=== PATIENT | female | born 1945 | race Caucasian/White ===

== ENCOUNTER 2016-06-09 08:14 | Inpatient (IN) | payer MEDICARE ==
[~2016-06-09] VITALS: Ht 160 cm; Wt 56.4 kg
[~2016-06-09 08:14] MED LIST: ACET-703 PO; ASPI325T33 PO; FISH100020 PO; FOLI1TAB4 PO; GEMF600 PO; METH0.35 IM; MULT-135 PO; OMEP20TA PO; PAXI20TA PO; PRED1 PO; ZETI10TA5 PO; ZOFR4TAB PO; [UNRECOGNIZED DRUG - CODE] PO
[2016-06-09 08:56] VITALS: BP 155/50; PULSE 83; RESP 20; TEMP 98; O2SAT 96
[2016-06-09] MEDS ORDERED: METOPROLOL TARTRATE 25 MG TAB PO PRN ×2 (09:00→20:15)
[2016-06-09] MEDS ORDERED: LACTATED RINGER'S 1000 ML IV PRN ×2 (09:00→20:00)
[2016-06-09] MEDS ORDERED: CHLORHEXIDINE GLUCONATE 2 % 1 PACK (2 CLOTHS) TOPICAL PRN ×2 (09:00→20:15)
[2016-06-09] MEDS ORDERED: POVIDONE IODINE 5% (ANTISEPSIS KIT) 4 APPLICATIONS EACH NARE PRN (09:00)
[2016-06-09] MEDS ORDERED: SODIUM CHLORID 0.9% 500 ML IV PRN ×2 (09:00→20:00)
[2016-06-09] MEDS ORDERED: INSULIN HUMAN REGULAR 1,000 UNITS/10 ML VIAL SQ PRN ×2 (09:00→20:15)
[2016-06-09 09:10] LABS: AUTOMATED NEUTROPHIL # 4.5 TH/MM3 (1.8-7.7); BASOPHIL # 0.1 TH/MM3 (0-0.2); BASOPHIL % 1.1 % (0.0-2.0); EOSINOPHIL # 0.3 TH/MM3 (0-0.4); EOSINOPHIL % 3.5 % (0.0-4.0); HEMO FLAGS DIFF FINAL; LYMPH % 33.3 % (9.0-44.0); LYMPHOCYTE # 2.7 TH/MM3 (1.0-4.8); MEAN CELL VOLUME 82.9 FL (80.0-100.0); MEAN CORPUSCULAR HEMOGLOBIN 26.8 PG (27.0-34.0); MEAN CORPUSCULAR HGB CONC 32.3 % (32.0-36.0); MONO % 6.8 % (0.0-8.0); NEUT % 55.3 % (16.0-70.0); PLATELET COUNT 336 TH/MM3 (150-450); RED BLOOD COUNT 4.59 MIL/MM3 (4.00-5.30); RED CELL DISTRIBUTION WIDTH 20.3 % (11.6-17.2); WHITE BLOOD COUNT 8.1 TH/MM3 (4.0-11.0)
[2016-06-09 09:55] LABS: BICARBONATE 25.7 MEQ/L (21.0-32.0); POTASSIUM 4.2 MEQ/L (3.5-5.1)
[2016-06-09] MEDS ORDERED: HEPARIN SODIUM - IV 10,000 UNITS/10 ML VIAL ONE (10:22)
[2016-06-09] MEDS ORDERED: PROTAMINE SULFATE 50 MG/5 ML VIAL ONE (10:22)
[2016-06-09] MEDS ORDERED: HEPARIN SODIUM - SQ 10,000 UNITS/ML VIAL ONE (10:27)
[2016-06-09] MEDS ORDERED: fentaNYL CITRATE 250 MCG/5 ML AMP ONE (10:38)
[2016-06-09] MEDS ORDERED: VANCOMYCIN 500 MG VIAL ONE (11:21)
[2016-06-09] MEDS ORDERED: LIDOCAINE HCL 1% 50 ML VIAL ONE (11:30)
[2016-06-09] MEDS ORDERED: PHENYLEPH/NS 1000 MCG/10 ML SYR IV ONE (12:00)
[2016-06-09] MEDS ORDERED: LACTATED RINGER'S 1000 ML INJ 1,000 ML IV ONE (12:00)
[2016-06-09] MEDS ORDERED: NITROGLYCERIN 1000 MCG/5 ML VIAL IV ONE (12:00)
[2016-06-09] MEDS ORDERED: PROPOFOL 200 MG/20 ML AMP IV ONE (12:00)
[2016-06-09] MEDS ORDERED: SUGAMMADEX SODIUM 200 MG/2 ML VIAL IV PUSH ONE ×2 (12:40)
[2016-06-09] MEDS ORDERED: *RESP: ALBUTEROL 2.5 MG/3 ML NEB (PRN) PERIprocedural Use ONLY NEB ONE (13:31)
[2016-06-09] MEDS ORDERED: *morphine SULFATE 8 MG/ML PERIprocedure ONLY ONE ×2 (13:31→13:58)
[2016-06-09] MEDS ORDERED: NALOXONE HCL 0.4 MG/ML AMP IV PRN (13:45)
[2016-06-09] MEDS ORDERED: MORPHINE SULFATE 4 MG/ML INJ IV PRN (13:45)
[2016-06-09] MEDS ORDERED: Post-op Orders (for Pharmacy) MISC XX ONE (13:45)
[2016-06-09] MEDS: PANTOPRAZOLE SOD 40 MG DELAYED RELEASE TAB PO SCH (13:45)
[2016-06-09] MEDS ORDERED: SODIUM CHLORIDE 0.9% FLUSH 10 ML FLUSH IV FLUSH PRN (13:45)
[2016-06-09] MEDS ORDERED: ONDANSETRON HCL 4 MG/2 ML VIAL IV PRN (13:45)
[2016-06-09] MEDS: SODIUM CHLOR 0.9% 1000 ML INJ 1,000 ML IV SCH (14:30)
[2016-06-09] MEDS ORDERED: niCARdipine 20MG/NS PREMIX 200 ML IV SCH (14:45)
[2016-06-09] MEDS: GEMFIBROZIL 600 MG TAB PO SCH (16:00)
[2016-06-09] MEDS: oxyCODONE/ACETAMINOPHEN 5 MG/325 MG TAB PO PRN (17:39)
[2016-06-09 19:30] VITALS: BP_SYST 136; BP_SYST 141; BP_DIAS 56; BP_DIAS 68; PULSE 74; RESP 16; TEMP 98.1; O2SAT 92
[2016-06-09] MEDS: SODIUM CHLORIDE 0.9% FLUSH 10 ML FLUSH IV FLUSH SCH (21:00)
[2016-06-09 22:45] VITALS: O2SAT 98
[2016-06-09] MEDS ORDERED: PARoxetine HCL 20 MG TAB PO SCH (22:50)
[2016-06-09 23:04] VITALS: BP_SYST 140; BP_SYST 151; BP_DIAS 58; BP_DIAS 64; PULSE 74; PULSE 76; RESP 16; TEMP 98; O2SAT 98
[2016-06-10] MEDS: oxyCODONE/ACETAMINOPHEN 5 MG/325 MG TAB PO PRN (02:56)
[2016-06-10 03:16] VITALS: BP 139/77; PULSE 79; PULSE 80; RESP 16; TEMP 98.8; O2SAT 95
[2016-06-10] MEDS: SODIUM CHLOR 0.9% 1000 ML INJ 1,000 ML IV SCH (06:14)
[2016-06-10 07:00] VITALS: BP 137/57; PULSE 72; RESP 16; TEMP 99.4; O2SAT 95
[2016-06-10 07:04] LABS: AUTOMATED NEUTROPHIL # 5.3 TH/MM3 (1.8-7.7); BASOPHIL % 0.4 % (0.0-2.0); EOSINOPHIL # 0.2 TH/MM3 (0-0.4); HEMATOCRIT 33.7 % (35.0-46.0); HEMO FLAGS DIFF FINAL; LYMPH % 23.6 % (9.0-44.0); LYMPHOCYTE # 1.8 TH/MM3 (1.0-4.8); MEAN CELL VOLUME 83.1 FL (80.0-100.0); MEAN CORPUSCULAR HEMOGLOBIN 26.3 PG (27.0-34.0); MEAN CORPUSCULAR HGB CONC 31.7 % (32.0-36.0); MONO % 5.5 % (0.0-8.0); NEUT % 67.5 % (16.0-70.0); PLATELET COUNT 274 TH/MM3 (150-450); RED BLOOD COUNT 4.05 MIL/MM3 (4.00-5.30); RED CELL DISTRIBUTION WIDTH 20.4 % (11.6-17.2); WHITE BLOOD COUNT 7.8 TH/MM3 (4.0-11.0)
[2016-06-10 07:30] LABS: BICARBONATE 30.1 MEQ/L (21.0-32.0); POTASSIUM 3.9 MEQ/L (3.5-5.1)
[2016-06-10] MEDS: GEMFIBROZIL 600 MG TAB PO SCH (08:33)
[2016-06-10] MEDS: SODIUM CHLORIDE 0.9% FLUSH 10 ML FLUSH IV FLUSH SCH (08:34)
[2016-06-10] MEDS ORDERED: amLODIPine BESYLATE 5 MG TAB PO SCH (09:00)
[2016-06-10] MEDS ORDERED: PARoxetine HCL 20 MG TAB PO SCH (09:00)
[2016-06-10] MEDS ORDERED: EZETIMIBE 10 MG TAB PO SCH (09:00)
[2016-06-10 11:04] VITALS: BP 119/54; PULSE 79; RESP 16; TEMP 99.2; O2SAT 95
[2016-06-10] MEDS ORDERED: ENOXAPARIN SODIUM 40 MG/0.4 ML SYRINGE SQ SCH (12:00)
[2016-06-10] MEDS ORDERED: ONDANSETRON HCL 4 MG/2 ML VIAL IV PUSH ONE (12:00)
[2016-06-10 12:44] VITALS: O2SAT 95
[2016-06-10] MEDS: PANTOPRAZOLE SOD 40 MG DELAYED RELEASE TAB PO SCH (13:21)
--- NOTE | 2016-06-10 22:48 | MP ---
cc: JOSSY ARECHIGA MD DATE OF SURGERY 06/09/2016 PREOPERATIVE DIAGNOSIS Left internal carotid artery stenosis, history of TIAs. POSTOPERATIVE DIAGNOSIS Left internal carotid artery stenosis, history of TIAs. PROCEDURE Left internal carotid artery endarterectomy, patch angioplasty. SURGEON Alberto Arechiga MD ANESTHESIA General. ESTIMATED BLOOD LOSS 100 mL. PROCEDURE IN DETAIL The patient is prepped and draped usual fashion. The left pre sternocleidomastoid incision was made, deepened down to the level of platysma and this one is opened. The facial vein is ligated and divided now with combined blunt and sharp dissection. The common carotid, internal and external carotid arteries are isolated and dissected. The hypoglossal nerve is carefully identified and preserved. Weitlaner and iron retractors are inserted. The patient given 5000 units of heparin. The umbilical tapes with Rumel tourniquets are placed around each vessel respectively. The vessel is now clamped placing the angle of the bulldog on the internal carotid artery and the angled DeBakey clamp on the common carotid artery. Vessel is now opened longitudinally using Zavala scissors. [place] shunt is immediately placed and blood flow restored and the Rumel is cinched down. It is apparent now that patient has actually a large plaque which is mainly in the common carotid artery and then enters the internal carotid artery. At the top of the plaque, there is a piece of plaque that is full of calcium and appears as a polyp essentially sticking into the vessel blocking the vessel more so than appears to be on MRI or CT scan. This is a very ugly looking calcified plaque appearing looking like a mushroom. I do not understand how this did not break off in the past. The plaque is now dissected in media plane using [place] dissector and then plaque is peeled out and it peeled nicely in the internal carotid artery without elevating the intima. The small debris is now cleared with heparinized saline and Leksell's and then inferiorly plaque is cut and tailored straight across to prevent any embolization. A bovine pericardial patch is now used and sewn in with running 6-0 Prolene. Prior to completion of the arterial repair, the shunt is removed and the vessel is repaired. The clamps are removed in the usual order and fashion preventing embolization into the brain releasing the internal carotid artery last. Meticulous hemostasis assured. Piece of Surgicel placed over the vessel. Seven flat STANLEY placed in the neck. Incision closed in layers with 2-0 Vicryl and 4-0 Monocryl. Benzoin and Steri-Strips applied. The patient is transferred out of the operating room and she wakes up in recovery room. She is completely neurologically intact. Jossy NAVA/ /5:26 PM /10:31 PM
== END 2016-06-10 15:30 | disposition home or self-care (01) | DRG 39 ==
LOC: HSDC 08:14 → HSDI 13:38 → HCVR 19:25
PROVIDERS: ADMIT Surgery; ATTEND Surgery
PROC: 03CJ0ZZ Extirpation of Matter from Left Common Carotid Artery, Open Approach (ICD-10-PCS; 2016-06-09)
PROC: 03UL0JZ Supplement Left Internal Carotid Artery with Synthetic Substitute, Open Approach (ICD-10-PCS; 2016-06-09)
PROC: 03CL0ZZ Extirpation of Matter from Left Internal Carotid Artery, Open Approach (ICD-10-PCS; principal; 2016-06-09 10:44)
DX: I65.22 Occlusion and stenosis of left carotid artery (principal); J44.9 Chronic obstructive pulmonary disease, unspecified; Z86.73 Personal history of transient ischemic attack (TIA), and cerebral infarction without residual deficits; K21.9 Gastro-esophageal reflux disease without esophagitis; F17.210 Nicotine dependence, cigarettes, uncomplicated
CPT/HCPCS: 80048; 85025; 86850; 86900; 86901; 88304; 88311; 94150; 94664; C1768; J1644; J1650; J2270; J2370; J2405; J2720; J3010; J3370; J7030; J7120; J7613

== ENCOUNTER 2017-06-19 06:33 | Day surgery (SDC) | payer MEDICARE ==
[~2017-06-19] VITALS: Ht 160 cm; Wt 59.5 kg
[2017-06-19] VITALS (9 sets, daily range): BP systolic 112–173; BP diastolic 59–83; PULSE 68–82; RESP 16–18; TEMP 98.1–98.2; O2SAT 91–98
[~2017-06-19 06:33] MED LIST changes: +EZET10 PO; -OMEP20TA PO; +OMEP20TA93 PO; -ZETI10TA5 PO
[2017-06-19] MEDS ORDERED: CALC250T PO (07:04)
[2017-06-19] MEDS ORDERED: FOLI400T PO (07:04)
[2017-06-19 07:34] LABS: AUTOMATED NEUTROPHIL # 9.5 TH/MM3 (1.8-7.7); BASOPHIL # 0.1 TH/MM3 (0-0.2); BASOPHIL % 0.7 % (0.0-2.0); EOSINOPHIL # 0.1 TH/MM3 (0-0.4); EOSINOPHIL % 1.2 % (0.0-4.0); HEMOGLOBIN 12.8 GM/DL (11.6-15.3); LYMPH % 10.6 % (9.0-44.0); LYMPHOCYTE # 1.2 TH/MM3 (1.0-4.8); MEAN CELL VOLUME 85.2 FL (80.0-100.0); MEAN CORPUSCULAR HEMOGLOBIN 29.4 PG (27.0-34.0); MEAN CORPUSCULAR HGB CONC 34.5 % (32.0-36.0); MEAN PLATELET VOLUME 8.5 FL (7.0-11.0); MONO % 4.1 % (0.0-8.0); MONOCYTE # 0.5 TH/MM3 (0-0.9); NEUT % 83.4 % (16.0-70.0); PLATELET COUNT 322 TH/MM3 (150-450); RED BLOOD COUNT 4.34 MIL/MM3 (4.00-5.30); RED CELL DISTRIBUTION WIDTH 20.7 % (11.6-17.2); WHITE BLOOD COUNT 11.3 TH/MM3 (4.0-11.0)
[2017-06-19 07:39] LABS: INTERNATIONAL NORMALIZED RATIO 1.1 RATIO; PROTHROMBIN TIME - PATIENT 11.1 SEC (9.8-11.6)
[2017-06-19 07:52] LABS: BICARBONATE 28.9 MEQ/L (21.0-32.0); CALCIUM 9.4 MG/DL (8.5-10.1); CREATININE 0.71 MG/DL (0.50-1.00)
[2017-06-19] MEDS ORDERED: MIDAZOLAM HCL 2 MG/2 ML VIAL ONE ×3 (08:45→10:14)
[2017-06-19] MEDS ORDERED: HEPARIN SODIUM - IV 10,000 UNITS/10 ML VIAL ONE (09:55)
[2017-06-19] MEDS ORDERED: ceFAZolin 2 GM PREMIX 50 ML ONE (10:19)
--- NOTE | 2017-06-19 10:40 | PD.RAD ---
Post Procedure Progress Note Pre Procedure Diagnosis: (1) Peripheral vascular disease of extremity with claudication Post Procedure Diagnosis: (1) Peripheral vascular disease of extremity with claudication Procedure Date: June 19, 2017 Supervising Radiologist: Carlos Morales Estimated blood loss: 5cc Anesthesia: Local, Conscious Sedation Plan of Activity Patient to Unit: ROPU Patient Condition: Good Additional Comments: Left SFA lesion treated with angioplasty. good flow post procedure. Severe Right common iliac stenosis identified during the procedure and treated with 8mm x3.7cm stent. Full dictated report to follow See PACS Report for procedural detail/treatment Carlos Morales MD June 19, 2017 10:40
[2017-06-19] MEDS ORDERED: ACETAMINOPHEN 325 MG TAB PO PRN (10:45)
--- NOTE | 2017-06-19 15:55 | RADRPT ---
EXAM DATE/TIME: 06/19/2017 09:07 [facility] COMPARISON: ANGIOGRAM, PELVIC, SELECTIVE, LT, June 19, 2017, 0:00. INDICATIONS : Patient presents with stenosis in SFA in need of intervention. MEDICAL HISTORY : fibromyalgia polymyositis dyslipidemia GERD SURGICAL HISTORY : tonsillectomy cataract surgery appendectomy back surgery cholecystectomy ENCOUNTER: Initial ACUITY: > 1 year PAIN SCORE: 0/10 FLUORO TIME: 21.9 minutes IMAGE SERIES: 9 ACCESS SITE: Right Femoral artery SEDATION TIME: 30 minutes CONTRAST: 1.) 60 cc Visipaque (iodixanol) MEDICATION(S): 1.) 4.5 mg midazolam (Versed) IV 2.) 225 mcg fentanyl (Sublimaze) IV DEVICE(S): 1.) Right common iliac artery stent (self expanding) [id number] Express 2.) Left popliteal artery AEMT balloon PROCEDURE : 1. Ultrasound-guided puncture of the access site. 2. Angiography of the access site prior to closure device. 3. Conscious sedation with continuous EKG and Oximetry monitoring. 4. Percutaneous closure of the access site. 5. Angiography of the left lower extremity 6. Angiography of the pelvis 7. angioplasty of the above-knee popliteal. 8. Stenting of the right common iliac. The risks, benefits and alternatives to the procedure were explained and verbal and written consent w as obtained. The site was prepped in sterile fashion. Full sterile technique was used, including ca p, mask, sterile gloves and gown and a large sterile sheet. Hand hygiene and 2% chlorhexidine and/or betadine/alcohol prep was utilized per protocol for cutaneous antisepsis. Sterile gel and sterile p robe cover were utilized for ultrasound guidance. The skin and subcutaneous tissues were infiltrated with local anesthetic solution. With ultrasound and fluoroscopic guidance the selected artery was punctured and a vascular sheath was placed. Angiography of the common femoral artery was performed for evaluation prior to percutaneous closure device placement. A 0.035 angle Glidewire and Omni Flush catheter were dense into the abdominal aorta. The guidewire an d Omni Flush catheter were advanced over the bifurcation. Runoff to the left lower extremity was perf ormed. Runoff evaluation confirmed focal high grade stenosis in the above-knee popliteal. The Omni Flush catheter was exchanged for a 5 [place] RABBE sheath. This was advanced over the bifurca tion the a 0.035 angle Glidewire. The angle Glidewire and a single and double glide catheter were adv anced down into the below-knee popliteal. His bladder axial to basket was advanced through the glide catheter. A 5 mm x 6 cm angioplasty balloo n was advanced over the 0.018 wire. Prolonged high pressure angioplasty of the lesion in the poplitea l was performed. A followup angiogram demonstrated excellent flow through the area without evidence o f dissection. Attention was then directed towards the patient's right common iliac. With the initial placement of t he wire and catheter there was difficulty crossing the midsection of the right common iliac. Angiogra phy of the pelvis was performed confirming high grade stenosis in the distal aspect of the right comm on iliac. An 8 mm x 3.7 cm stent was advanced across the lesion. This was deployed without difficulty. A follow up angiogram demonstrated the stent to be in excellent position with complete resolution of the area of stenosis. At the conclusion of the procedure, the patient had excellent distal pulses. The arteriotomy and the right groin was closed with an Angio-Seal closure device.. Conscious sedatio n was performed with the prescribed dosages and duration as above in the presence of an independent [facility] radiology nurse to assist in the monitoring of the patient. EKG and oximetry remained stable throughout the procedure. CONCLUSION: 1. Successful angioplasty of a high-grade stenosis in the above-knee popliteal on the left. 2. Successful stenting of a high grade stenosis in the right common iliac. Carlos Morales MD on June 19, 2017 at 15:44 Board Certified Radiologist. This report was verified electronically.
== END 2017-06-19 15:00 | disposition home or self-care (01) ==
LOC: HROP 06:33 → HRIP 06:36 → HROP 15:00
PROVIDERS: ATTEND Surgery
DX: I73.9 Peripheral vascular disease, unspecified (principal); K21.9 Gastro-esophageal reflux disease without esophagitis; M79.7 Fibromyalgia; M33.20 Polymyositis, organ involvement unspecified; E78.5 Hyperlipidemia, unspecified; Z90.49 Acquired absence of other specified parts of digestive tract; Z01.818 Encounter for other preprocedural examination
CPT/HCPCS: 37221; 37224; 75710; 76937; 80048; 85025; 85610; 85730; 99152; 99153; C1725; C1760; C1769; C1876; C1887; C1894; J0690; J1644; J2250; J3010

== ENCOUNTER 2017-06-26 12:59 | Day surgery (SDC) | payer MEDICARE ==
[~2017-06-26 12:59] MED LIST changes: -ACET-703 PO; +CALC250T PO; -FOLI1TAB4 PO; +FOLI400T PO; -MULT-135 PO; -PAXI20TA PO; -PRED1 PO; -[UNRECOGNIZED DRUG - CODE] PO
== END 2017-06-26 13:50 | disposition home or self-care (01) ==
LOC: HROP 12:59 → HRIP 13:03 → HROP 13:50
PROVIDERS: ATTEND Radiology Body Imaging
DX: I73.9 Peripheral vascular disease, unspecified (principal)